=== PATIENT | male | born 2000 | race Hispanic/Latino ===

== ENCOUNTER 2023-10-22 16:38 | Emergency (ER) | payer OTHER ==
[~2023-10-22] VITALS: Ht 180.3 cm; Wt 154.2 kg
[2023-10-22 16:53] VITALS: PULSE 82; RESP 16; TEMP 98.3; O2SAT 100
[2023-10-22] MEDS: TRAMADOL HCL 50 MG TAB PO STA (17:21)
== END 2023-10-22 17:59 | disposition home or self-care (01) ==
LOC: ER 16:45
DX: M54.50 Low back pain, unspecified (principal); V44.5XXA Car driver injured in collision with heavy transport vehicle or bus in traffic accident, initial encounter; Y92.488 Other paved roadways as the place of occurrence of the external cause
CPT/HCPCS: 72100; 99283